=== PATIENT | male | born 1955 | race Caucasian/White ===

== ENCOUNTER → 2017-12-02 | Outpatient (CLI) | payer OTHER ==
--- NOTE | 2017-12-03 10:05 | RSPPFT ---
DATE OF PROCEDURE: 12/02/17 COMMENTS: Spirometry shows FVC of 3.5 at 83% of predicted, FEV1 of 2.5 at 74%, FEV1/FVC ratio is decreased. Flow is decreased at FEF 50, FEF 75 and FEF 25-75. There is no response after bronchodilator treatment. Lung volumes show residual volume is normal. TLC is normal. Diffusion capacity is normal. Flow volume loop indicates terminal airways obstruction. Room air arterial blood gases show pH of 7.41, PCO2 of 45, PO2 of 73, BiCarb of 28 and Saturation of 93%. IMPRESSION: 1. Mild small airways obstructive lung disease. 2. No response after bronchodilator treatment. 3. Normal lung volumes. 4. Normal diffusion capacity. 5. Blood gases show mild hypoxia on room air.
== END ==
LOC: HRSP 08:54
PROVIDERS: ATTEND Specialist
DX: J44.9 Chronic obstructive pulmonary disease, unspecified (principal); R06.00 Dyspnea, unspecified
CPT/HCPCS: 36600; 82805; 94060; 94726; 94729